=== PATIENT | female | born 1980 | race American Indian/Alaskan Native ===

== ENCOUNTER 2021-01-06 11:34 | Emergency (ER) | payer OTHER ==
[~2021-01-06] VITALS: Ht 157.5 cm; Wt 68.0 kg
[2021-01-06] MEDS ORDERED: DOXYCYCLINE HY100 MG PO (13:46)
== END 2021-01-06 14:10 | disposition home or self-care (01) ==
LOC: ER 11:34
DX: N75.1 Abscess of Bartholin's gland (principal); B96.89 Other specified bacterial agents as the cause of diseases classified elsewhere